=== PATIENT | female | born 1950 | race African-American/Black ===

== ENCOUNTER → 2016-12-01 | Day surgery (SDC) | payer OTHER | END | disposition home or self-care (01) | LOC: JRADIR 08:47 | PROVIDERS: ATTEND Family Medicine | PROC: 0W9G3ZZ Drainage of Peritoneal Cavity, Percutaneous Approach (ICD-10-PCS; principal; 2016-12-01) | PROC: BW40ZZZ Ultrasonography of Abdomen (ICD-10-PCS; 2016-12-01) | DX: R18.8 Other ascites (principal) | CPT/HCPCS: 49083; 76942-TC ==

== ENCOUNTER → 2017-01-02 | Day surgery (SDC) | payer OTHER | END | disposition home or self-care (01) | LOC: JRADUS 08:10 → JRADIR 08:10 → EDSTATUS 10:27 | PROVIDERS: ATTEND Nurse Practitioner Adult Health | PROC: 0W9G3ZZ Drainage of Peritoneal Cavity, Percutaneous Approach (ICD-10-PCS; principal; 2017-01-02) | PROC: BW40ZZZ Ultrasonography of Abdomen (ICD-10-PCS; 2017-01-02) | DX: R18.8 Other ascites (principal) | CPT/HCPCS: 76942-TC ==

== ENCOUNTER → 2017-03-07 | Day surgery (SDC) | payer OTHER | END | disposition home or self-care (01) | LOC: JRADIR 09:34 | PROVIDERS: ATTEND Nurse Practitioner Adult Health | PROC: 0W9G3ZZ Drainage of Peritoneal Cavity, Percutaneous Approach (ICD-10-PCS; principal; 2017-03-07) | PROC: BW40ZZZ Ultrasonography of Abdomen (ICD-10-PCS; 2017-03-07) | DX: R18.8 Other ascites (principal) | CPT/HCPCS: 76942-TC ==

== ENCOUNTER → 2017-05-08 | Day surgery (SDC) | payer OTHER ==
[2017-05-08 10:05] LABS: BASOPHIL 0.9 % (0-2.0); EOSINOPHIL 1.4 % (0-4.5); MCH 33.1 pg (25.7-33.7); MCHC 33.5 g/dl (32.0-36.0); MEAN CELL VOLUME 98.9 fl (80-96); NEUTROPHILS 83.7 % (42.8-82.8); PLATELET COUNT 214 K/MM3 (134-434); WHITE BLOOD COUNT 9.4 K/mm3 (4.0-10.0)
[2017-05-08 10:22] LABS: INR 1.06 (0.82-1.09); PROTHROMBIN TIME (PATIENT) 11.7 SEC (9.98-11.88)
[2017-05-08 14:47] LABS: PERITONEAL FLUID LYMPHOCYTE 4 %; PERITONEAL FLUID MACROPHAGE 5 %; PERITONEAL FLUID MESOTHELIAL 85 %; PERITONEAL FLUID NEUTROPHIL 6 %
--- NOTE | 2017-05-09 14:19 | PATH ---
Cytology Non-Gynecological Report Patient Name: MANJU TURNER [facility]. Rec. #: [id number] /Age/Gender: 1950 (Age: 66) / F Account: [id number] Location: RADIOLOGY Taken: 05/08/2017 Received: 05/08/2017 Reported: 05/09/2017 Physicians: Cass Marin MD Specimen(s) Received A: PERITONEAL FLUID IN 50% ALCOHOL B: PERITONEAL FLUID FRESH Clinical History Ascites Final Diagnosis A,B. ABDOMINAL FLUID, PARACENTESIS: SATISFACTORY FOR EVALUATION. NO MALIGNANT CELLS IDENTIFIED. REACTIVE MESOTHELIAL CELLS, HISTIOCYTES AND LYMPHOCYTES. Electronically Signed Erick Frias M.D. Gross Description A. Received is a 50 cc of yellow fluid in 50% alcohol. One cytofunnel slide and one cell block are made. B. Received is 2000 cc of yellow fluid fresh. One cytofunnel slide and one cell block are made.
== END | disposition home or self-care (01) ==
LOC: JRADIR 09:35
PROVIDERS: ATTEND Family Medicine
PROC: 0W9G3ZX Drainage of Peritoneal Cavity, Percutaneous Approach, Diagnostic (ICD-10-PCS; principal; 2017-05-08)
PROC: BW40ZZZ Ultrasonography of Abdomen (ICD-10-PCS; 2017-05-08)
DX: R18.8 Other ascites (principal)
CPT/HCPCS: 36415; 76942-TC; 82042; 82150; 82465; 82945; 83615; 84157; 84478; 85025; 85610; 87070; 87075; 87102; 87116; 87205; 87206; 87210; 87899; 88108; 88305-TC; 89051

== ENCOUNTER → 2017-07-06 | Day surgery (SDC) | payer OTHER ==
[2017-07-06 09:53] LABS: BASOPHIL 0.8 % (0-2.0); EOSINOPHIL 2.8 % (0-4.5); MCH 31.8 pg (25.7-33.7); MCHC 33.1 g/dl (32.0-36.0); NEUTROPHILS 79.8 % (42.8-82.8); PLATELET COUNT 237 K/MM3 (134-434); RDW 15.4 % (11.6-15.6); WHITE BLOOD COUNT 10.1 K/mm3 (4.0-10.0)
[2017-07-06 10:05] LABS: INR 1.07 (0.82-1.09); PROTHROMBIN TIME (PATIENT) 11.8 SEC (9.98-11.88)
== END | disposition home or self-care (01) ==
LOC: JRADIR 09:19
PROVIDERS: ATTEND Family Medicine
PROC: 0W9G3ZX Drainage of Peritoneal Cavity, Percutaneous Approach, Diagnostic (ICD-10-PCS; principal; 2017-07-06)
PROC: BW40ZZZ Ultrasonography of Abdomen (ICD-10-PCS; 2017-07-06)
DX: R18.8 Other ascites (principal); Z53.8 Procedure and treatment not carried out for other reasons
CPT/HCPCS: 36415; 76705-TC; 85025; 85610